=== PATIENT | male | born 1985 | race Caucasian/White ===

== ENCOUNTER 2022-03-02 08:00 | Emergency (ER) | payer OTHER, SELFPAY ==
[2022-03-02 08:07] VITALS: BP 115/69; BP 128/78; PULSE 110; PULSE 134; RESP 16; O2SAT 96; O2SAT 98; BMI 24.3
[2022-03-02 08:15] VITALS: TEMP 36.9
[2022-03-02 08:31] LABS: MANUAL DIFF FLAG NO
[2022-03-02 08:34] LABS: Basophils Absolute Auto 0.1 X10*3/uL (0.0-0.2); Basophils Percent Auto 0.9 % (0-2); Eosinophils Absolute Auto 0.2 X10*3/uL (0.0-0.4); Eosinophils Percent Auto 2.3 % (0-4); Hematocrit 48.8 % (42.0-52.0); Hemoglobin 16.5 g/dl (14.0-18.0); Imm Gran Abs Auto 0.07 X10*3/uL (0.00-0.03); Imm Gran Pct Auto 1.1 % (0.0-0.4); Lymphocytes Absolute Auto 1.4 X10*3/uL (1.2-4.9); Lymphocytes Percent Auto 21.7 % (20-40); Mean Corpuscular HGB Conc 33.8 g/dl (31.0-36.0); Mean Corpuscular Hemoglobin 29.1 pg (27.0-33.0); Mean Corpuscular Volume 86.1 fL (80.0-98.0); Mean Platelet Volume 9.5 fL (9.4-12.4); Monocytes Absolute Auto 0.4 X10*3/uL (0.1-1.2); Monocytes Percent Auto 6.2 % (2-11); Neutrophils Absolute Auto 4.4 x10*3/uL (2.0-8.3); Neutrophils Percent Auto 67.8 % (45-73); Platelet Count 276 X10*3/uL (160-400); Red Blood Count 5.67 X10*6/uL (4.60-5.80); White Blood Count 6.5 X10*3/uL (4.8-10.8)
--- OUTSIDE RECORDS SUMMARY | 2022-03-02 08:37 | XMS_ITS | Continuity of Care Document ---
:1985 Author Organization [facility] Address [address] [facility], 3rd Floor, [address] [place] [address]- Care Team Providers Name Role Phone Not on Staff, PCP Primary Care Physician Unavailable Encounter [facility] Date(s): 04/08/20 - 05/08/20 [facility] [address] [facility], 3rd [facility], [address] [place] [id number] Allergies, Adverse Reactions, Alerts Substance Reaction Severity Status NKA Active Immunizations Given and Recorded Vaccine Date Status Refusal Reason tetanus/diphtheria/pertussis, acel(Tdap) 06/16/18 Given Medications acetaminophen-HYDROcodone 325 mg-5 mg oral tablet 1 tablet, By Mouth, Every 4 hours, PRN for pain, # 12 tablet, 0 Refills, Maintenance, 03/09/18 14:47:38 EDT, Tablet Start Date: 03/09/18 Status: Orderedibuprofen 600 mg oral tablet 600 mg, 1, tablet, By Mouth, 4 times a day, # 40 tablet, Refills 0, Tot. Refills 0, Maintenance, 03/09/18 14:47:30 EDT, Print Requisition Start Date: 03/09/18 Stop Date: 03/19/18 Status: OrderedlevETIRAcetam 750 mg oral tablet, extended release See Instructions, TAKE 4 TABLETS BY MOUTH EVERY MORNING AND 2 TABLETS EVERY EVENING, # 180 tablet, 5Refills, 05/07/20 10:43:00 EST, [facility]/pharmacy #[id number] Start Date: 05/07/20 Status: Ordered
--- OUTSIDE RECORDS SUMMARY | 2022-03-02 08:37 | XMS_ITS | Continuity of Care Document ---
:1985 Author Organization [facility] Address [address] [facility], 3rd Floor, [address] [place] [address]- Care Team Providers Name Role Phone Not on Staff, PCP Primary Care Physician Unavailable [facility]counter [facility] Date(s): 04/08/20 - 05/08/20 [facility] [address] [facility], 3rd [facility], [address] [place] [id number] Allergies, Adverse Reactions, Alerts Substance Reaction Severity [...] # 180 tablet, 5Refills, 05/07/20 10:43:00 EST, [facility]/pharmacy #[id number] Start Date: 05/07/20 Status: Ordered
--- OUTSIDE RECORDS SUMMARY | 2022-03-02 08:37 | XMS_ITS | Continuity of Care Document ---
:1985 Author Organization [facility] Address Unavailable , Care Team Providers Name Role Phone Not on Staff, PCP Primary Care Physician Unavailable Encounter [facility] [place] Date(s): 10/02/21 - 11/01/21 [facility] Allergies, Adverse Reactions, Alerts Substance Reaction Severity Status Biaxin Active Immunizations Given and Recorded Vaccine Date [...] OrderedlevETIRAcetam 750 mg oral tablet, extended release 3 tablet = 2,250 mg, By Mouth, 2 times a day, for 90 days, # 540 tablet, 5 Refills, Physician Stop 10/20/22 9:01:00 EDT, 04/28/21 9:01:00 EST, [facility]acy [id number], 170, cm, 03/27/21 14:53:00 EDT, Height, 78, kg, 01/13/21 8:01:00 EDT, Dry Weight Start Date: 04/28/21 Stop Date: 10/20/22 Status: Ordered Problem List Condition Effective Dates Status Health Status Informant Juvenile myoclonic epilepsy(Confirmed) Active Social History Social History Type Response Smoking Status Never (less than 100 in life time) entered on: 03/27/21 Sex Male
--- OUTSIDE RECORDS SUMMARY | 2022-03-02 08:37 | XMS_ITS | Continuity of Care Document ---
:1985 Author Organization [facility] Address Unavailable , Care Team Providers Name Role Phone Not on Staff, PCP Primary Care Physician Unavailable [place] [facility] [place] 12/31/20 - 01/30/21 [facility] Allergies, Adverse Reactions, Alerts Substance Reaction [...] 2 TABLETS EVERY EVENING, # 180 tablet, 11 Refills, 11/26/20 13:54:00 EDT, [id number], 175, cm, 07/07/20 3:01:00 EST, Height, 85, kg, 07/07/20 3:01:00 EST, Dry Weight Start Date: 11/26/20 Status: Ordered Problem List Condition Effective Dates Status Health Status Informant Juvenile myoclonic epilepsy(Confirmed) Active
--- OUTSIDE RECORDS SUMMARY | 2022-03-02 08:37 | XMS_ITS | Continuity of Care Document ---
:1985 Author Organization [facility] Address [address] [place] [address]- Care Team Providers Name Role Phone Not on Staff, PCP Primary Care Physician Unavailable Encounter [facility] Date(s): 06/01/19 - 06/08/[address] [address]- [facility] Attending Physician: Luz Maria Grey CNM Allergies, Adverse Reactions, Alerts Substance Reaction Severity [...] Start Date: 03/09/18 Stop Date: 03/19/18 Status: OrderedKeppra XR 750 mg oral tablet, extended release See Instructions, 4 tablet By Mouthin AM and 2 tablet in PM, # 180 tablet, 7 Refills, Maintenance, 12/06/18 11:50:26 EDT, ER Tablet, dose increase, needs early refill Start Date: 12/06/18 Status: Ordered
--- OUTSIDE RECORDS SUMMARY | 2022-03-02 08:37 | XMS_ITS | Continuity of Care Document ---
:1985 Author Organization [facility] Address [address] [facility], 3rd Floor, [address] [place] [address]- Care Team Providers Name Role Phone Not on Staff, PCP Primary Care Physician Unavailable Encounter [facility] Date(s): 11/26/20 - 12/26/20 [facility] [address] [place] [address], 3rd [facility], [address] [place] [id number] Allergies, Adverse Reactions, Alerts Substance [...]
--- OUTSIDE RECORDS SUMMARY | 2022-03-02 08:37 | XMS_ITS | Continuity of Care Document ---
:1985 Author Organization [facility] Address [address] [place] [address]- Care Team Providers Name Role Phone Not on Staff, PCP Primary Care Physician Unavailable Encounter [facility] [place] Date(s): 07/07/20 - 07/07/[address] [address]- Discharge Disposition: A-D/C Home Attending Physician: Héctor URIBE, Cody De La Paz Admitting Physician: Cody Anaya MD Referring Physician: Not on Staff, Referring MD Allergies, Adverse Reactions, Alerts Substance Reaction Severity [...] # 180 tablet, 5Refills, 05/07/20 10:43:00 EST, [facility]/pharmacy #[id number] Start Date: 05/07/20 Status: Ordered Vital Signs Most recent to oldest [Reference Range]: 1 2 Height 175 cm (07/07/20 1:30 AM) Weight 85 kg (07/07/20 1:30 AM) Oxygen Saturation [94-100 %] 100 % 100 % (07/07/20 3:05 AM) (07/07/20 1:06 AM) Pulse Rate [55-90 bpm] 76 bpm 102 bpm (07/07/20 3:05 AM) *H* (07/07/20 1:06 AM) Blood Pressure [90-138/55-84 mm Hg] 124/87 mm Hg 128/ 78 mm Hg (07/07/20 3:05 AM) (07/07/20 1:06 AM) Respiratory Rate [16-30 br/min] 18 br/min 18 br/mi n (07/07/20 3:05 AM) (07/07/20 1:06 AM) Temperature [96.8-100.4 DegF] 99.7 DegF (07/07/20 1:06 AM) Mode of Delivery (Oxygen) Room air Room air (07/07/20 3:05 AM) (07/07/20 1:06 AM) Blood pressure sites Arm, right (07/07/20 1:06 AM) Temperature Route Oral (07/07/20 1:06 AM) Dry Weight 85 kg (07/07/20 1:30 AM) Weight Obtained Via Patient/family stated (07/07/20 1:30 AM) Dry Weight Obtained Via Patient/family stated (07/07/20 1:30 AM)
--- OUTSIDE RECORDS SUMMARY | 2022-03-02 08:37 | XMS_ITS | Continuity of Care Document ---
:1985 Author Organization [facility] Address Unavailable , Care Team Providers Name Role Phone Not on Staff, PCP Primary Care Physician Unavailable Encounter [facility] Date(s): 09/10/21 - 10/10/21 [facility] Allergies, Adverse Reactions, Alerts Substance Reaction [...]
--- OUTSIDE RECORDS SUMMARY | 2022-03-02 08:37 | XMS_ITS | Continuity of Care Document ---
:1985 Author Organization [facility] Address Unavailable , Care Team Providers Name Role Phone Not on Staff, PCP Primary Care Physician Unavailable Encounter [facility] [place] Date(s): 10/03/21 - 01/01/22 [facility] Attending Physician: Clay Dudley MD Admitting Physician: Clay Dudley MD Allergies, Adverse Reactions, Alerts Substance Reaction [...]
--- OUTSIDE RECORDS SUMMARY | 2022-03-02 08:37 | XMS_ITS | Continuity of Care Document ---
:1985 Author Organization [facility] Address [address] [facility], 3rd Floor, [address] [place] [address]- Care Team Providers Name Role Phone Not on Staff, PCP Primary Care Physician Unavailable Encounter [facility] Date(s): 03/21/19 - 06/30/19 [facility] [address] [facility], 3rd [facility], [address] [place] [address]- [facility] Attending Physician: Clay Dudley MD Admitting Physician: [...]
--- OUTSIDE RECORDS SUMMARY | 2022-03-02 08:37 | XMS_ITS | Continuity of Care Document ---
:1985 Author Organization [facility] Address Unavailable , Care Team Providers Name Role Phone Not on Staff, PCP Primary Care Physician Unavailable [place] [facility] [place] 12/02/21 - 01/01/22 [facility] Attending Physician: Darlin Harris Admitting Physician: Darlin Harris Referring Physician: Darlin Harris Allergies, Adverse Reactions, Alerts Substance Reaction Severity [...] Stop 10/20/22 9:01:00 EDT, 04/28/21 9:01:00 EST, [facility]/pharmacy #[id number], 170, cm, 03/27/21 14:53:00 EDT, Height, 78, kg, 01/13/21 8:01:00 EDT, Dry Weight Start Date: 04/28/21 Stop Date: 10/20/22 Status: Ordered Problem List Condition Effective Dates Status Health Status Informant Juvenile myoclonic epilepsy(Confirmed) Active Social History Social History Type Response Smoking Status Never (less than 100 in life time) entered on: 03/27/21 Sex Male
--- OUTSIDE RECORDS SUMMARY | 2022-03-02 08:37 | XMS_ITS | Continuity of Care Document ---
:1985 Author Organization [facility] Address [address] [facility], 3rd Floor, [address] [place] [address]- Care Team Providers Name Role Phone Not on Staff, PCP Primary Care Physician Unavailable Encounter [facility] [place] Date(s): 10/23/20 - 11/22/20 [facility] [address] [place] [address], 3rd Floor, [address] [place] [address]- Allergies, Adverse Reactions, Alerts Substance Reaction Severity [...] EVERY EVENING, # 180 tablet, 11 Refills, 11/04/20 10:09:00 EDT, [id number], 175, cm, 07/07/20 3:01:00 EST, Height, 85, kg, 07/07/20 3:01:00 EST, Dry Weight Start Date: 11/04/20 Status: Ordered Problem List Condition Effective Dates Status Health Status Informant Juvenile myoclonic epilepsy(Confirmed) Active
--- OUTSIDE RECORDS SUMMARY | 2022-03-02 08:37 | XMS_ITS | Continuity of Care Document ---
:1985 Author Organization [facility] Address Unavailable , Care Team Providers Name Role Phone Not on Staff, PCP Primary Care Physician Unavailable Encounter [facility] Date(s): 09/19/21 - 10/19/21 [facility] Allergies, Adverse Reactions, Alerts Substance [...]
--- OUTSIDE RECORDS SUMMARY | 2022-03-02 08:37 | XMS_ITS | Continuity of Care Document ---
:1985 Author Organization [facility] Address Unavailable , Care Team Providers Name Role Phone Not on Staff, PCP Primary Care Physician Unavailable [place] [facility] [place] 04/28/21 - 05/28/21 [facility] Attending Physician: Darlin Harris Admitting Physician: [...] Stop 10/20/22 9:01:00 EDT, 04/28/21 9:01:00 EST, [facility]/pharmacy #[id number], 170, cm, 03/27/21 14:53:00 EDT, Height, 78, kg, 01/13/21 8:01:00 EDT, Dry Weight Start Date: 04/28/21 Stop Date: 10/20/22 Status: Ordered Problem List Condition Effective Dates Status Health Status Informant Juvenile myoclonic epilepsy(Confirmed) Active Social History Social History Type Response Smoking Status Never (less than 100 in life time) entered on: 03/27/21 Sex Male
--- OUTSIDE RECORDS SUMMARY | 2022-03-02 08:37 | XMS_ITS | Continuity of Care Document ---
:1985 Author Organization [facility] Address [address] [place] [address]- Care Team Providers Name Role Phone Not on Staff, PCP Primary Care Physician Unavailable [place] [facility] [place] 11/14/21 - 11/14/[address] [address]- Discharge Disposition: A-D/C Home Attending Physician: Austin URIBE, Marilyn De La Paz Admitting Physician: Marilyn Avila MD Referring Physician: Not on Staff, Referring [...] Health Status Informant Juvenile myoclonic epilepsy(Confirmed) Active Vital Signs Most recent to oldest 1 2 3 [Reference Range]: Oxygen Saturation [94-100 %] 98 % 96 % 93 % (11/14/21 2:26 PM) (11/14/21 1:18 PM) *L* (11/14/21 12:20 P M) Pulse Rate [55-90 bpm] 90 bpm 93 bpm 118 bpm (11/14/21 2:26 PM) *H* *H* (11/14/21 1:18 PM) (11/14/21 12:20 PM) Blood Pressure [90-138/55-84 112/62 mm Hg 115/63 mm Hg 109 /67 mm Hg mm Hg] (11/14/21 2:26 PM) (11/14/21 1:18 PM) (11/14/21 12: 20 PM) Respiratory Rate [16-30 19 br/min 20 br/min 16 br/mi n br/min] (11/14/21 2:26 PM) (11/14/21 1:18 PM) (11/14/21 12: 20 PM) Temperature [96.8-100.4 DegF] 98.8 DegF 98.8 DegF 98 .8 DegF (11/14/21 2:26 PM) (11/14/21 1:18 PM) (11/14/21 12: 20 PM) Mode of Delivery (Oxygen) Room air Room air Room a ir (11/14/21 2:26 PM) (11/14/21 1:18 PM) (11/14/21 12: 20 PM) Blood pressure sites Arm, right Arm, right Arm, left (11/14/21 2:26 PM) (11/14/21 1:18 PM) (11/14/21 12: 20 PM) Temperature Route Oral Oral Oral (11/14/21 2:26 PM) (11/14/21 1:18 PM) (11/14/21 12: 20 PM) Social History Social History Type Response Smoking Status Never (less than 100 in life time) entered on: 03/27/21 Sex Male
--- OUTSIDE RECORDS SUMMARY | 2022-03-02 08:37 | XMS_ITS | Continuity of Care Document ---
:1985 Author Organization [facility] Address [address] [facility], 3rd Floor, [address] [place] [address]- Care Team Providers Name Role Phone Not on Staff, PCP Primary Care Physician Unavailable Encounter [facility] Date(s): 05/31/19 - 06/10/19 [facility] [address] [place] [address], 3rd [facility], [address] [place] [address]- [facility] Attending Physician: Darlin Harris Admitting Physician: AdmtrDariln Referring Physician: Admtr, [id number] Allergies, Adverse Reactions, Alerts Substance Reaction Severity [...]
--- OUTSIDE RECORDS SUMMARY | 2022-03-02 08:37 | XMS_ITS | Continuity of Care Document ---
:1985 Author Organization [facility] Address [address] [place] [address]- Care Team Providers Name Role Phone Not on Staff, PCP Primary Care Physician Unavailable Encounter [facility] [place] Date(s): 01/10/22 - 01/10/[address] [address]- Discharge Disposition: A-D/C Home Attending Physician: Mook Dubose MD Admitting Physician: Mook Dubose MD Referring Physician: Not on Staff, Referring [...] 3 [Reference Range]: Oxygen Saturation [94-100 %] 97 % 97 % 98 % (01/10/22 3:57 PM) (01/10/22 3:13 PM) (01/10/22 2:1 5 PM) Pulse Rate [55-90 bpm] 70 bpm 87 bpm 110 bpm (01/10/22 3:57 PM) (01/10/22 3:13 PM) *H* (01/10/22 2:15 PM ) Blood Pressure [90-138/55-84 mm 102/59 mm Hg 95/62 mm Hg 133/77 mm Hg Hg] (01/10/22 3:57 PM) (01/10/22 3:13 PM) (01/10/22 2:1 5 PM) Respiratory Rate [16-30 br/min] 18 br/min 18 br/min 19 br/min (01/10/22 3:57 PM) (01/10/22 3:13 PM) (01/10/22 2:1 5 PM) Temperature [96.8-100.4 DegF] 98.2 DegF (01/10/22 2:15 PM) Mode of Delivery (Oxygen) Room air Room air Room a ir (01/10/22 3:57 PM) (01/10/22 3:13 PM) (01/10/22 2:1 5 PM) Blood pressure sites Arm, left (01/10/22 2:15 PM) Temperature Route Oral (01/10/22 2:15 PM) Social History Social History Type Response Smoking Status Never (less than 100 in life time) entered on: 03/27/21 Sex Male
--- OUTSIDE RECORDS SUMMARY | 2022-03-02 08:37 | XMS_ITS | Continuity of Care Document ---
:1985 Author Organization [facility] Address [address] [facility], 3rd Floor, [address] [place] [address]- Care Team Providers Name Role Phone Not on Staff, PCP Primary Care Physician Unavailable Encounter [facility] [place] Date(s): 07/30/20 - 11/27/20 [facility] [address] [facility], 3rd Floor, [address] [place] [address]- Attending Physician: Chivo Benavides Admitting Physician: Chivo Benavides Allergies, Adverse Reactions, Alerts Substance Reaction Severity [...] 180 tablet, 11 Refills, 11/26/20 13:54:00 EDT, [facility]/pharmacy #[id number], 175, cm, 07/07/20 3:01:00 EST, Height, 85, kg, 07/07/20 3:01:00 EST, Dry Weight Start Date: 11/26/20 Status: Ordered Problem List Condition Effective Dates Status Health Status Informant Juvenile myoclonic epilepsy(Confirmed) Active
--- NOTE | 2022-03-02 08:42 | ED.SEIZURE ---
HPI - Seizure General Chief Complaint: Seizure Stated Complaint: SEIZURE Time Seen by Provider: 03/02/22 08:07 Source: patient Mode of arrival: EMS History of Present Illness HPI Narrative: 36-year-old male with history seizures and currently on Keppra states that he missed a dose last night and then was in the drive-through at [facility] where he had a seizure. He is brought in by EMS and although very mild post ictal is otherwise GCS -15. He denies any recent fever, chills, alcohol or drug use but states he does use marijuana intermittently to go to sleep. He states that last night he got home very late, left is medication car and missed his dose. He otherwise states he has been feeling well and healthy. Related Data Allergies Allergy/AdvReac Type Severity Reaction Status Date / Time clarithromycin [From BIAXIN] Allergy Mild UNKNOWN Verified 03/02/22 08:59 Review of Systems Review of Systems: Pertinent positives and negatives as stated in HPI 10 point review of systems is otherwise negative. PMFSH Past Medical History Source: nursing notes reviewed Social History Social History Alcohol intake: never Patient Tobacco Use Status: Current someday Tobacco user Substance Use Type: Marijuana Advance Directives: No Advance Directives Information Provided: No Physical Exam Vital Signs: Vital Signs: Last Vital Signs Temp 98.4 F 03/02/22 08:15 Pulse 110 H 03/02/22 08:07 Resp 16 03/02/22 08:07 BP 115/69 03/02/22 08:07 Pulse Ox 96 03/02/22 08:07 O2 Del Method 03/02/22 08:07 BMI result Body Mass Index 24.3 VITAL SIGNS: Reviewed. GENERAL: Well developed, well nourished, in no acute distress. HEAD: Normocephalic/atraumatic EYES: PERRLA, EOMI intact without pain, no nystagmus EARS: Ext canals without abnormality, TMs non-bulging and non-erythematous NOSE: Nares patent bilateral OROPHARYNX: no oral lesions noted, posterior pharynx clear and non-erythematous without noted tonsillar enlargement/erythema/exudates NECK: Supple, no adenopathy LUNGS: Normal breath sounds. No adventitious sounds or accessory muscle use. SpO2<96> CARDIOVASCULAR: Regular rate and rhythm without noted murmurs ABDOMEN: Soft, non-tender, non-distended with bowel sounds. MUSCULOSKELETAL: No tenderness, deformities, or effusions noted on gross inspection. EXTREMITIES: No cyanosis, clubbing or edema. SKIN: Inspection of the skin reveals no rashes NEUROLOGIC: Alert and oriented x 4. Strength and sensation to light touch were grossly intact x 4. Course Course Course Narrative: 36-year-old male with history and clinical presentation consistent with seizure related with missed dose of medication, will obtain basic labs there are no obvious injuries to the head or oral cavity, patient will receive a loading dose of Keppra and if lab work is otherwise within normal limits he will be discharged home in stable condition with instructions to follow-up with his primary care provider. Review of all investigations otherwise negative for acute findings, the mildly elevated potassium level noted is likely secondary to patient's seizure. Patient was otherwise informed of all results and advised that he is not to drive until he is evaluated by now patient medical professional and he states he has an appointment this coming Wednesday. He understands that he is not supposed to drive until he is evaluated and he was caution to not miss any further doses of his medication. MDM - Seizure Lab Data Result diagrams: 03/02/22 08:24 03/02/22 08:24 Labs: Lab Results 03/02/22 03/02/22 03/02/22 Range/Units 08:24 08:24 08:24 WBC 6.5 (4.8-10.8) X10*3/uL RBC 5.67 (4.60-5.80) X10*6/uL Hgb 16.5 (14.0-18.0) g/dl Hct 48.8 (42.0-52.0) % MCV 86.1 (80.0-98.0) fL MCH 29.1 (27.0-33.0) pg MCHC 33.8 (31.0-36.0) g/dl RDW 12.0 (11.0-16.0) % Plt Count 276 (160-400) X10*3/uL MPV 9.5 (9.4-12.4) fL Immature Gran % (Auto) 1.1 H (0.0-0.4) % Neut % (Auto) 67.8 (45-73) % Lymph % (Auto) 21.7 (20-40) % [place] % (Auto) 6.2 (2-11) % Eos % (Auto) 2.3 (0-4) % Baso % (Auto) 0.9 (0-2) % Lymph # (Auto) 1.4 (1.2-4.9) X10*3/uL [place] # (Auto) 0.4 (0.1-1.2) X10*3/uL Eos # (Auto) 0.2 (0.0-0.4) X10*3/uL Baso # (Auto) 0.1 (0.0-0.2) X10*3/uL Abs Immat Gran (auto) 0.07 H (0.00-0.03) X10*3/uL Absolute Neuts (auto) 4.4 (2.0-8.3) x10*3/uL Absolute Nucleated RBC 0.000 (0.0-0.012) X10*3/uL Nucleated RBC % (auto) 0.0 (0.0-0.2) /100WBC PT 10.3 (10.0-13.1) SEC INR 0.9 (0.9-1.1) Sodium 141 (135-145) mmol/L Potassium 5.3 H (3.3-5.1) mmol/L Chloride 111 H (96-108) mmol/L Carbon Dioxide 21 L (22-29) mmol/L Anion Gap 14 (12-20) BUN 11 (9-16) mg/dL Creatinine 0.80 (0.5-1.4) mg/dL Estim Creat Clear Calc 120.4 Estimated GFR > 60 Random Glucose 90 (60-115) mg/dL Calcium 9.1 (8.4-10.2) mg/dL Total Bilirubin 0.3 (0.0-1.0) mg/dL AST 19 (5-37) U/L ALT 26 (0-40) U/L Alkaline Phosphatase 80 (39-117) U/L Total Protein 6.9 (6.5-8.0) g/dL Albumin 4.1 (3.5-5.0) g/dL Urine Color Urine Appearance Urine pH (5.0-9.0) Ur Specific [place] (1.005-1.025) Urine Protein (Neg-Trace) mg/dL Urine Glucose (UA) (Negative) mg/dL Urine Ketones (Negative) mg/dL Urine Blood (Negative) Urine Nitrite (Negative) Ur Leukocyte Esterase (Negative) Urine RBC (0-2) /HPF Urine WBC (0-5) /HPF Ur Squamous Epith Cells (0-2) /HPF Urine Bacteria (None Seen) Hyaline Casts (0-2) /LPF Urine Opiates Screen (Not Detect) Urine Fentanyl Screen (Not Detect) Ur Barbiturates Screen (Not Detect) Ur Phencyclidine Scrn (Not Detect) Ur Amphetamines Screen (Not Detect) U Benzodiazepines Scrn (Not Detect) Urine Cocaine Screen (Not Detect) U Marijuana (THC) Screen (Not Detect) Ethyl Alcohol mg/dL 03/02/22 03/02/22 03/02/22 Range/Units 08:24 08:32 08:32 WBC (4.8-10.8) X10*3/uL RBC (4.60-5.80) X10*6/uL Hgb (14.0-18.0) g/dl Hct (42.0-52.0) % MCV (80.0-98.0) fL MCH (27.0-33.0) pg MCHC (31.0-36.0) g/dl RDW (11.0-16.0) % Plt Count (160-400) X10*3/uL MPV (9.4-12.4) fL Immature Gran % (Auto) (0.0-0.4) % Neut % (Auto) (45-73) % Lymph % (Auto) (20-40) % [place] % (Auto) (2-11) % Eos % (Auto) (0-4) % Baso % (Auto) (0-2) % Lymph # (Auto) (1.2-4.9) X10*3/uL [place] # (Auto) (0.1-1.2) X10*3/uL Eos # (Auto) (0.0-0.4) X10*3/uL Baso # (Auto) (0.0-0.2) X10*3/uL Abs Immat Gran (auto) (0.00-0.03) X10*3/uL Absolute Neuts (auto) (2.0-8.3) x10*3/uL Absolute Nucleated RBC (0.0-0.012) X10*3/uL Nucleated RBC % (auto) (0.0-0.2) /100WBC PT (10.0-13.1) SEC INR (0.9-1.1) Sodium (135-145) mmol/L Potassium (3.3-5.1) mmol/L Chloride (96-108) mmol/L Carbon Dioxide (22-29) mmol/L Anion Gap (12-20) BUN (9-16) mg/dL Creatinine (0.5-1.4) mg/dL Estim Creat Clear Calc Estimated GFR Random Glucose (60-115) mg/dL Calcium (8.4-10.2) mg/dL Total Bilirubin (0.0-1.0) mg/dL AST (5-37) U/L ALT (0-40) U/L Alkaline Phosphatase (39-117) U/L Total Protein (6.5-8.0) g/dL Albumin (3.5-5.0) g/dL Urine Color Yellow Urine Appearance Clear Urine pH 5.0 (5.0-9.0) Ur Specific [place] 1.015 (1.005-1.025) Urine Protein 30 (1+) H (Neg-Trace) mg/dL Urine Glucose (UA) Negative (Negative) mg/dL Urine Ketones Trace (Negative) mg/dL Urine Blood Trace H (Negative) Urine Nitrite Negative (Negative) Ur Leukocyte Esterase Negative (Negative) Urine RBC 0-2 (0-2) /HPF Urine WBC 0-5 (0-5) /HPF Ur Squamous Epith Cells 0-2 (0-2) /HPF Urine Bacteria None Seen (None Seen) Hyaline Casts 3-5 (0-2) /LPF Urine Opiates Screen Not Detected (Not Detect) Urine Fentanyl Screen Not Detected (Not Detect) Ur Barbiturates Screen Not Detected (Not Detect) Ur Phencyclidine Scrn Not Detected (Not Detect) Ur Amphetamines Screen Not Detected (Not Detect) U Benzodiazepines Scrn Not Detected (Not Detect) Urine Cocaine Screen Not Detected (Not Detect) U Marijuana (THC) Screen POSITIVE H (Not Detect) Ethyl Alcohol < 10 mg/dL Discharge Plan Discharge Clinical Impression: Seizure Patient Disposition: Home, Self-Care Instructions: Nonepileptic Seizures (ED) Additional Instructions: 1. Please resume all home medications, do not miss any doses, remain well hydrated. 2. Please follow-up with your scheduled appointment this Wednesday and again you are instructed to not drive any motor vehicle until you have been re-evaluated. Return to the ER for worsening symptoms.
[2022-03-02 08:53] LABS: Ethanol < 10 mg/dL
[2022-03-02 08:56] LABS: Alanine Aminotransferase 26 U/L (0-40); Albumin Level 4.1 g/dL (3.5-5.0); Alkaline Phosphatase 80 U/L (39-117); Anion Gap 14 (12-20); Aspartate Amino Transferase 19 U/L (5-37); Bilirubin Total 0.3 mg/dL (0.0-1.0); Blood Urea Nitrogen 11 mg/dL (9-16); Calcium 9.1 mg/dL (8.4-10.2); Carbon Dioxide 21 mmol/L (22-29); Chloride 111 mmol/L (96-108); Creatinine Clr Calc Pharmacy 120.4; Estimated Glomerular Filt Rate > 60; Glucose Random 90 mg/dL (60-115); Potassium 5.3 mmol/L (3.3-5.1); Sodium 141 mmol/L (135-145); Total Protein 6.9 g/dL (6.5-8.0)
[2022-03-02 08:56] LABS: Appearance Urine Clear; Color Urine Yellow; Glucose Urine UA Negative (Negative); Leukocyte Esterase Urine Negative (Negative); Nitrite Urine Negative (Negative); Specific Gravity - Urine 1.015 (1.005-1.025); UMIC TRIGGER UACC YES; Urine Blood Trace (Negative); Urine Ketones Trace mg/dL (Negative); Urine Protein 30 (1+) mg/dL (Neg-Trace)
[2022-03-02] MEDS: levETIRAcetam 1,000 MG TABLET 1000 MG PO (08:59)
[2022-03-02 09:00] LABS: Amphetamine Screen Urine Not Detected (Not Detect); Barbiturates, Urine Not Detected (Not Detect); Benzodiazepines Screen Urine Not Detected (Not Detect); Cannabinoid Screen Urine POSITIVE (Not Detect); Cocaine Screen Urine Not Detected (Not Detect); Fentanyl, urine Not Detected (Not Detect); Opiate Screen Urine Not Detected (Not Detect); Phencyclidine Screen Urine Not Detected (Not Detect)
[2022-03-02 09:01] LABS: INTERNATIONAL NORM RATIO 0.9 (0.9-1.1); Prothrombin Time 10.3 SEC (10.0-13.1)
[2022-03-02 09:12] LABS: Bacteria Urine None Seen (None Seen); RBC Urine 0-2 /HPF (0-2); Squamous Epithelial Cell Urine 0-2 /HPF (0-2); WBC Urine 0-5 /HPF (0-5)
== END 2022-03-02 09:57 | disposition home or self-care (01) ==
PROVIDERS: Emergency Provider Student in an Organized Health Care Education/Training Program
DX: R56.9 Unspecified convulsions (principal); F17.200 Nicotine dependence, unspecified, uncomplicated; F12.90 Cannabis use, unspecified, uncomplicated; Z79.899 Other long term (current) drug therapy
CPT/HCPCS: 36415; 80053; 80307; 81001; 81003; 82077; 85025; 85610; 99283

== ENCOUNTER 2022-05-04 09:19 | Emergency (ER) | payer OTHER, SELFPAY ==
--- NOTE | ~2022-05-04 | CT_ITS ---
EXAMINATION: CT HEAD WITHOUT CONTRAST CLINICAL INFORMATION: Altered mental status COMPARISON: None TECHNIQUE: Contiguous axial imaging was performed from the skull base to vertex without intravenous administration of contrast. This CT examination was performed using dose optimization techniques as appropriate, variously including the following: *Automated exposure control *Adjustment of mA and/or kV according to patient size (this includes techniques or standardized protocols for targeted exams where dose is matched to indication/reason for exam; i.e. extremities or head) *Use of iterative reconstruction technique DLP: 639 mGy-cm FINDINGS: There is no midline shift. There is no mass effect. There is no hemorrhage. The basal cisterns appear patent. The posterior fossa is grossly within normal limits. No extra-axial collection is seen. The wong-white matter appears intact. Note is made of sinus disease. Possible small air-fluid level in the left maxillary sinus. CT/CT head/brain wo IV con IMPRESSION: Negative acute noncontrast CT of the brain. Sinus disease is noted
[2022-05-04 09:24] VITALS: BP 138/90; PULSE 130; O2SAT 94
[2022-05-04 09:26] VITALS: BP 133/65; PULSE 115; RESP 18; TEMP 36.6; O2SAT 98; BMI 25.4
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
[2022-05-04] MEDS: Midazolam HCl/PF 2 MG/2 ML VIAL IVPUSH (09:53)
[2022-05-04 09:54] LABS: MANUAL DIFF FLAG NO
--- NOTE | 2022-05-04 09:56 | PC.NURSE ---
medicated as ordered, skin wpd, nad, no complaints, fully alert
[2022-05-04 10:00] LABS: Basophils Absolute Auto 0.1 X10*3/uL (0.0-0.2); Basophils Percent Auto 0.7 % (0-2); Eosinophils Absolute Auto 0.1 X10*3/uL (0.0-0.4); Eosinophils Percent Auto 1.4 % (0-4); Hematocrit 49.9 % (42.0-52.0); Hemoglobin 16.6 g/dl (14.0-18.0); Imm Gran Abs Auto 0.06 X10*3/uL (0.00-0.03); Imm Gran Pct Auto 0.8 % (0.0-0.4); Lymphocytes Absolute Auto 1.1 X10*3/uL (1.2-4.9); Lymphocytes Percent Auto 14.1 % (20-40); Mean Corpuscular HGB Conc 33.3 g/dl (31.0-36.0); Mean Corpuscular Hemoglobin 28.9 pg (27.0-33.0); Mean Corpuscular Volume 86.9 fL (80.0-98.0); Mean Platelet Volume 9.9 fL (9.4-12.4); Monocytes Absolute Auto 0.5 X10*3/uL (0.1-1.2); Monocytes Percent Auto 6.9 % (2-11); Neutrophils Absolute Auto 5.8 x10*3/uL (2.0-8.3); Neutrophils Percent Auto 76.1 % (45-73); Platelet Count 297 X10*3/uL (160-400); Red Blood Count 5.74 X10*6/uL (4.60-5.80); Red Cell Distribution Width 12.1 % (11.0-16.0); White Blood Count 7.7 X10*3/uL (4.8-10.8)
[2022-05-04 10:01] LABS: Ammonia 36 umol/L (13-55)
[2022-05-04 10:07] LABS: COVID-19 Test Negative (Negative); IDNOW Serial# 16C4AD1C
[2022-05-04 10:07] LABS: Amphetamine Screen Urine Not Detected (Not Detect); Barbiturates, Urine Not Detected (Not Detect); Benzodiazepines Screen Urine Not Detected (Not Detect); Cannabinoid Screen Urine POSITIVE (Not Detect); Cocaine Screen Urine Not Detected (Not Detect); Fentanyl, urine Not Detected (Not Detect); Opiate Screen Urine Not Detected (Not Detect); Phencyclidine Screen Urine Not Detected (Not Detect)
--- OUTSIDE RECORDS SUMMARY | 2022-05-04 10:07 | XMS_ITS | Continuity of Care Document ---
:1985 Author Organization [facility] Address [address] [place] [address]- Care Team Providers Name Role Phone Not on Staff, PCP Primary Care Physician Unavailable Encounter [facility] Date(s): 01/13/21 - 01/13/[address] [address]- Discharge Disposition: A-D/C Home Attending Physician: Estuardo URIBE, Yifan Cole Admitting Physician: Estuardo URIBE, Yifan Cole Referring Physician: Not on Staff, Referring MD [...] Active Vital Signs Most recent to oldest [Reference Range]: 1 2 Height 170 cm 170 cm (01/13/21 8:01 AM) (01/13/21 5:34 AM) Oxygen Saturation [94-100 %] 98 % 96 % (01/13/21 8:01 AM) (01/13/21 5:34 AM) Pulse Rate [55-90 bpm] 70 bpm 90 bpm (01/13/21 8:01 AM) (01/13/21 5:34 AM) Blood Pressure [90-138/55-84 mm Hg] 104/57 mm Hg 108/ 58 mm Hg (01/13/21 8:01 AM) (01/13/21 5:34 AM) Respiratory Rate [16-30 br/min] 18 br/min 22 br/mi n (01/13/21 8:01 AM) (01/13/21 5:34 AM) Temperature [96.8-100.4 DegF] 98.6 DegF (01/13/21 5:34 AM) Mode of Delivery (Oxygen) Room air Room air (01/13/21 8:01 AM) (01/13/21 5:34 AM) Blood pressure sites Arm, right (01/13/21 8:01 AM) Temperature Route Oral (01/13/21 5:34 AM) Dry Weight 78 kg 78 kg (01/13/21 8:01 AM) (01/13/21 5:34 AM)
--- OUTSIDE RECORDS SUMMARY | 2022-05-04 10:07 | XMS_ITS | Continuity of Care Document ---
:1985 Author Organization [facility] Address [address] [place] [address]- Care Team Providers Name Role Phone Not on Staff, PCP Primary Care Physician Unavailable Encounter [facility] Date(s): 03/27/21 - 04/26/21 [facility] [address] [place] [address]- Attending Physician: Darlin Harris Admitting Physician: Darlin [...] 180 tablet, 11 Refills, 11/26/20 13:54:00 EDT, [facility]/pharmacy #[id number], 175, cm, 07/07/20 3:01:00 EST, Height, 85, kg, 07/07/20 3:01:00 EST, Dry Weight Start Date: 11/26/20 Status: Ordered Problem List Condition Effective Dates Status Health Status Informant Juvenile myoclonic epilepsy(Confirmed) Active Social History Social History Type Response Smoking Status Never (less than 100 in life time) entered on: 03/27/21 Sex Male
--- OUTSIDE RECORDS SUMMARY | 2022-05-04 10:07 | XMS_ITS | Continuity of Care Document ---
:1985 Author Organization [facility] Address [address] [facility], 3rd Floor, [address] [place] [id number]- Care Team Providers Name Role Phone Not on Staff, PCP Primary Care Physician Unavailable Encounter [facility] Date(s): 04/22/20 - 05/22/20 [facility] [address], [address]rd Floor, [address] [place] [address] Allergies, Adverse Reactions, Alerts Substance Reaction [...] # 180 tablet, 5Refills, 05/07/20 10:43:00 EST, [facility]/pharmacy #[id number] Start Date: 05/07/20 Status: Ordered
--- OUTSIDE RECORDS SUMMARY | 2022-05-04 10:07 | XMS_ITS | Continuity of Care Document ---
:1985 Author Organization [facility] Address [address] [place] [address]- Care Team Providers Name Role Phone Not on Staff, PCP Primary Care Physician Unavailable Encounter [facility] Date(s): 06/07/19 - 06/14/[address] [address]- [facility] Attending Physician: Luz Maria Grey CNM Allergies, [...]
--- OUTSIDE RECORDS SUMMARY | 2022-05-04 10:07 | XMS_ITS | Continuity of Care Document ---
:1985 Author Organization [facility] Address [address] [facility], 3rd Floor, [address] [place] [address]- Care Team Providers Name Role Phone Not on Staff, PCP Primary Care Physician Unavailable Encounter [facility] Date(s): 02/22/20 - 03/23/20 [facility] [address] [facility], 3rd [facility], [address] [place] [address]- [facility] Allergies, Adverse Reactions, Alerts Substance Reaction Severity [...] 2 TABLETS EVERY EVENING, # 180 tablet, 7Refills, Maintenance, [facility] STORE [id number] Start Date: 07/26/19 Status: Ordered
--- OUTSIDE RECORDS SUMMARY | 2022-05-04 10:07 | XMS_ITS | Continuity of Care Document ---
:1985 Author Organization [facility] Address [address] [place] [address]- Care Team Providers Name Role Phone Not on Staff, PCP Primary Care Physician Unavailable [id number] Date(s): 03/11/21 - 04/26/21 [facility] [employer] [address] [place] [address]- Attending Physician: Manuel Ramírez MD Allergies, Adverse Reactions, Alerts Substance Reaction [...] 180 tablet, 11 Refills, 11/26/20 13:54:00 EDT, [facility]/pharmacy #[id number], 175, cm, 07/07/20 3:01:00 EST, Height, 85, kg, 07/07/20 3:01:00 EST, Dry Weight Start Date: 11/26/20 Status: Ordered Problem List Condition Effective Dates Status Health Status Informant Juvenile myoclonic epilepsy(Confirmed) Active Vital Signs Most recent to oldest [Reference Range]: 1 Height 170 cm (03/27/21 2:53 PM) Social History Social History Type Response Smoking Status Never (less than 100 in life time) entered on: 03/27/21 Sex Male
--- OUTSIDE RECORDS SUMMARY | 2022-05-04 10:07 | XMS_ITS | Continuity of Care Document ---
:1985 Author Organization [facility] Address Unavailable , Care Team Providers Name Role Phone Not on Staff, PCP Primary Care Physician Unavailable Encounter [facility] Date(s): 12/31/20 - 01/30/21 [facility] Allergies, Adverse Reactions, Alerts Substance [...]
--- OUTSIDE RECORDS SUMMARY | 2022-05-04 10:07 | XMS_ITS | Continuity of Care Document ---
:1985 Author Organization [facility] Address [address] [facility], 3rd Floor, [address] [place] [address]- Care Team Providers Name Role Phone Not on Staff, PCP Primary Care Physician Unavailable Encounter [facility] Date(s): 07/22/20 - 08/21/20 [facility] [address] [facility], 3rd Floor, [address] [place] [address]- Allergies, Adverse Reactions, Alerts Substance Reaction Severity [...] # 180 tablet, 5Refills, 05/07/20 10:43:00 EST, [facility]/pharmacy #[id number] Start Date: 05/07/20 Status: Ordered Problem List Condition Effective Dates Status Health Status Informant Juvenile myoclonic epilepsy(Confirmed) Active
--- OUTSIDE RECORDS SUMMARY | 2022-05-04 10:07 | XMS_ITS | Continuity of Care Document ---
:1985 Author Organization [facility] Address [address] [place] [address]- Care Team Providers Name Role Phone Not on Staff, PCP Primary Care Physician Unavailable Encounter [facility] NBR [id number] Date(s): 03/11/21 - 04/10/21 [facility] [address] [place] [address]- [place] Allergies, Adverse Reactions, Alerts Substance Reaction Severity [...] 180 tablet, 11 Refills, 11/26/20 13:54:00 EDT, [facility]/pharmacy #[id number], 175, cm, 07/07/20 3:01:00 EST, Height, 85, kg, 07/07/20 3:01:00 EST, Dry Weight Start Date: 11/26/20 Status: Ordered Problem List Condition Effective Dates Status Health Status Informant Juvenile myoclonic epilepsy(Confirmed) Active Social History Social History Type Response Smoking Status Never (less than 100 in life time) entered on: 03/27/21 Sex Male
--- OUTSIDE RECORDS SUMMARY | 2022-05-04 10:08 | XMS_ITS | Continuity of Care Document ---
:1985 Author Organization [facility] Address Unavailable , Care Team Providers Name Role Phone Not on Staff, PCP Primary Care Physician Unavailable [place] [facility] [place] 09/04/21 [facility] Allergies, Adverse Reactions, Alerts Substance Reaction [...]
[2022-05-04 10:18] LABS: Alanine Aminotransferase 33 U/L (0-40); Albumin Level 4.4 g/dL (3.5-5.0); Alkaline Phosphatase 85 U/L (39-117); Anion Gap 12 (12-20); Aspartate Amino Transferase 24 U/L (5-37); Bilirubin Direct < 0.2 mg/dL (0.0-0.5); Bilirubin Total 0.3 mg/dL (0.0-1.0); Blood Urea Nitrogen 13 mg/dL (9-16); Calcium 9.3 mg/dL (8.4-10.2); Carbon Dioxide 23 mmol/L (22-29); Chloride 109 mmol/L (96-108); Creatinine Clr Calc Pharmacy 116.6; Estimated Glomerular Filt Rate > 60; Glucose Random 83 mg/dL (60-115); Magnesium 2.1 mg/dL (1.6-2.6); Potassium 4.3 mmol/L (3.3-5.1); Sodium 140 mmol/L (135-145); Total Protein 7.1 g/dL (6.5-8.0)
[2022-05-04 10:23] LABS: Ethanol < 10 mg/dL
[2022-05-04 12:20] VITALS: BP 103/54; PULSE 81; RESP 18; O2SAT 97
== END 2022-05-04 12:23 | disposition home or self-care (01) ==
PROVIDERS: Emergency Provider Emergency Medicine
DX: Z04.1 Encounter for examination and observation following transport accident (principal); R56.9 Unspecified convulsions; Z20.822 Contact with and (suspected) exposure to COVID-19; F17.200 Nicotine dependence, unspecified, uncomplicated; F12.90 Cannabis use, unspecified, uncomplicated; Z79.899 Other long term (current) drug therapy
CPT/HCPCS: 36415; 70450; 80048; 80076; 80307; 82077; 82140; 83735; 85025; 87635; 96374; 99284; J2250